=== PATIENT | female | born 1995 | race Caucasian/White ===

== ENCOUNTER 2018-03-25 10:38 | Emergency (ER) | payer OTHER ==
[~2018-03-25] VITALS: Ht 165.1 cm; Wt 54.4 kg
[2018-03-25] MEDS: IBUPROFEN 600 MG TABLET PO ONE (11:52)
--- NOTE | 2018-03-25 11:52 | NUR ---
Patient discharged to home in stable conditon. Written and verbal after care instructions given. Patient verbalizes understanding of instructions.
[2018-03-25] MEDS ORDERED: IBUPROFEN 600 MG TABLET ONE (11:55)
== END 2018-03-25 12:04 | disposition home or self-care (01) ==
LOC: ER 10:39
DX: S13.4XXA Sprain of ligaments of cervical spine, initial encounter (principal); V49.9XXA Car occupant (driver) (passenger) injured in unspecified traffic accident, initial encounter; Y93.89 Activity, other specified; Y92.410 Unspecified street and highway as the place of occurrence of the external cause; Y99.8 Other external cause status
CPT/HCPCS: 72050; 99284; A4663